=== PATIENT | female | born 1950 | race African-American/Black ===

== ENCOUNTER → 2016-12-16 | Day surgery (SDC) | payer OTHER ==
[~2016-12-16] MED LIST: ACID REDUCER75 M1 PO; ALLERGY RELIEF10 M6 PO; AMITRIPTYLINE H25 MG PO; CALCIUM + D 6001 TA1 PO; CELEXA20 MG PO; CITALOPRAM HBR40 MG PO; GABAPENTIN300 MG PO; HARD NAILS2500 MCG; KEFLEX500 MG; LEVOXYL0.137 MG PO; LUMIGAN2.5 ML OU; MSM1500 MG PO; MULTI VITAMIN1 EACH PO; NEURONTIN300 MG PO; PRILOSEC PO; PRILOSEC20 MG DOB; PROMETHAZINE HC25 MG PO; PROZAC PO; PYRIDIUM100 MG; SEROQUEL PO; SEROQUEL300 M1 PO; SEROQUEL300 MG PO; SYNTHROID125 PO; TEMAZEPAM30 MG PO; VICODIN 5/1 TAB 5/50; ZYRTEC10 M2 PO
--- NOTE | ~2016-12-16 | EKG ---
PATIENT: YEIMI ZAMORANO UNIT #: [id number] Ventricular Rate: 74 BPM Atrial Rate: 74 BPM P-R Interval: 156 ms QRS Duration: 80 ms Q-T Interval: 392 ms QTC Calculation(Bezet): 435 ms P [place]: 63 degrees Calculated R [place]: 35 degrees Calculated T [place]: 21 degrees Diagnosis Line: Normal sinus rhythm Diagnosis Line: Normal ECG Diagnosis Line: When compared with ECG of 15-DEC-2015 12:49, Diagnosis Line: No significant change was found Diagnosis Line: Confirmed by BERNADETTE ARELLANO MD ([id number]) on 12/19/2016 Diagnosis Line: 7:19:47 AM INTERPRETING MD: EILEEN HAYS
--- NOTE | ~2016-12-16 | OR ---
Unit #: [id number] #: [id number] Patient: YEIMI ZAMORANO [id number] [address] [address] [id number] O MR#: [id number] NAME: YEIMI ZAMROANO ROOM: Date of Procedure: 12/16/2016 Admission Date: 12/16/2016 Surgeon: Otto Khan M.D. : 1950 Attending Physician: Otto Khan M.D. Primary Care Physician: Primary Care Physician No OPERATIVE REPORT PREOPERATIVE DIAGNOSIS Interstitial cystitis. POSTOPERATIVE DIAGNOSIS Interstitial cystitis. PROCEDURE PERFORMED Cystoscopy, urethral dilation, and hydrodistention. ANESTHESIA General. DESCRIPTION OF PROCEDURE After informed consent, she was taken to the operating room, placed under general anesthetic and positioned in lithotomy. Her vagina and perineum were prepped and draped in usual sterile fashion. Cystoscopy was performed revealing a normal urethra and bladder. The entire bladder was inspected. She had normal-appearing left and right ureteral orifices. Her urethra was dilated using the male urethral sounds. This was done without difficulty. She was dilated up to 28-Yi. Her bladder was distended on three occasions. The volumes obtained were 900 mL respectively. She did have some glomerulations, but no ulcerations. An catheter placed to drainage temporarily and 1 L of Clorpactin was instilled into the bladder without difficulty. The bladder was emptied. Prior to completing the filling with Clorpactin, at least one time, repeat cystoscopy showed no injury to the bladder after Clorpactin instillation. The bladder was drained. Lidocaine jelly was placed inside the urethra for local anesthetic. She was taken to recovery. She will be discharged home. Return to see me as an outpatient. Dictated by... Mirlande Art/altagracial TD: 12/17/2016 02:21 JOB #: [id number] Unit #: [id number] #: [id number] Patient: YEIMI ZAMORANO OPERATIVE REPORT X Otto Khan MD X PROCEDURE OPERATIVE NOTE
[2016-12-16 07:40] LABS: BLOOD UREA NITROGEN 13 mg/dL (9-23); BUN/CREATININE RATIO 16.25; CALCIUM SERUM 9.1 mg/dL (8.4-10.2); CARBON DIOXIDE 27 mmol/L (22-31); CHLORIDE 104 mmol/L (100-111); CREATININE SERUM 0.8 mg/dL (0.6-1.4); GLOM FILT RATE Estimated ABOVE60 mL/min (>60); GLUCOSE FASTING 92 mg/dL (70-110); POTASSIUM 4.1 mmol/L (3.5-5.1); SODIUM 137 mmol/L (135-145)
== END | disposition home or self-care (01) ==
LOC: CSUR 06:10
PROVIDERS: Urology
DX: N30.10 Interstitial cystitis (chronic) without hematuria (principal); E89.0 Postprocedural hypothyroidism; F17.210 Nicotine dependence, cigarettes, uncomplicated; Z90.49 Acquired absence of other specified parts of digestive tract; Z87.19 Personal history of other diseases of the digestive system; Z90.721 Acquired absence of ovaries, unilateral; Z98.890 Other specified postprocedural states; Z88.0 Allergy status to penicillin; Z88.6 Allergy status to analgesic agent; Z79.899 Other long term (current) drug therapy
CPT/HCPCS: 80048; 93005; J0131; J0690; J1170; J1885; J2250; J3010

== ENCOUNTER → 2017-04-19 | Day surgery (SDC) | payer OTHER ==
--- NOTE | ~2017-04-19 | OR ---
Unit #: [id number] #: [id number] Patient: YEIMI ZAMORANO [id number] [address] [address] [id number] O MR#: [id number] NAME: YEIMI ZAMORANO ROOM: Date of Procedure: 04/19/2017 Admission Date: 04/19/2017 Surgeon: Otto Khan M.D. : 1950 Attending Physician: Otto Khan M.D. Primary Care Physician: Primary Care Physician No OPERATIVE REPORT PREOPERATIVE DIAGNOSIS Interstitial cystitis. POSTOPERATIVE DIAGNOSIS Interstitial cystitis. PROCEDURES PERFORMED Cystoscopy, hydrodistention, Clorpactin instillation. ANESTHESIA General. DESCRIPTION OF PROCEDURE After informed consent, she was taken to the operating room, placed under general anesthetic, positioned in lithotomy. Her vagina and perineum were prepped and draped in usual sterile fashion. Cystoscopy was performed showing a normal urethra and bladder. The entire bladder was inspected and there were no tumors, no stones, no diverticula. She had normal left and right ureteral orifices with efflux of clear urine. Her bladder was distended on 3 occasions. Each time, I was able to obtain 1 L of dilation. She had terminal hematuria. She had some ulceration. Repeat inspection showed no injury or perforation to the bladder. A catheter was placed inside the bladder and 1 L of Clorpactin instilled into the catheter and the bladder was emptied periodically while I was instilling the Clorpactin. After instilling the Clorpactin, repeat inspection shows a normal-appearing bladder except for some glomerulations. There was no injury to the bladder. Her bladder was drained and lidocaine jelly was placed inside the urethra and bladder for local anesthetic. She will be discharged home. Return to see me as an outpatient. Dictated by... Mirlande Art/madyson TD: 04/19/2017 18:03 JOB #: [id number] Unit #: [id number] #: [id number] Patient: YEIMI ZAMORANO OPERATIVE REPORT Page 1 of 1 X Otto Khan MD PROCEDURE OPERATIVE NOTE
[2017-04-19 10:45] LABS: CALCIUM SERUM 8.6 mg/dL (8.4-10.2); POTASSIUM 3.5 mmol/L (3.5-5.1)
== END | disposition home or self-care (01) ==
LOC: CSUR 09:55
PROVIDERS: Urology
DX: N30.11 Interstitial cystitis (chronic) with hematuria (principal); E89.0 Postprocedural hypothyroidism; K21.9 Gastro-esophageal reflux disease without esophagitis; F17.210 Nicotine dependence, cigarettes, uncomplicated; Z88.0 Allergy status to penicillin; Z88.6 Allergy status to analgesic agent; Z90.49 Acquired absence of other specified parts of digestive tract; Z90.721 Acquired absence of ovaries, unilateral; Z98.890 Other specified postprocedural states
CPT/HCPCS: 80048; J0690; J2250; J2405

== ENCOUNTER → 2017-04-28 | Day surgery (SDC) | payer OTHER ==
--- NOTE | ~2017-04-28 | OR ---
Unit #: [id number] #: [id number] Patient: YEIMI ZAMORANO [id number] [address] [address] [id number] O MR#: [id number] NAME: YEIMI ZAMORANO ROOM: Date of Procedure: 04/28/2017 Admission Date: 04/28/2017 Surgeon: Beto Belcher M.D. : 1950 Attending Physician: Beto Belcher M.D. Primary Care Physician: Primary Care Physician No OPERATIVE REPORT PREOPERATIVE DIAGNOSIS History of colonic polyps. POSTOPERATIVE DIAGNOSIS History of colonic polyps. PROCEDURES PERFORMED 1. Colonoscopy to cecum. 2. Polypectomy with electrocautery snare at 65 cm. ANESTHESIA Monitored anesthesia care. FINDINGS The patient was found to have a normal colon other than a 5 mm polyp that was excised at 65 cm. SPECIMENS Sent to pathology. COMPLICATIONS None apparent. CONDITION The patient tolerated the procedure well. INDICATIONS FOR PROCEDURE The patient is a 67-year-old black female, who presents at this time with a history of multiple colonic polyps removed several years ago. She presents at this time for surveillance colonoscopy. DESCRIPTION OF PROCEDURE After obtaining informed consent, the patient was brought to the endoscopy suite. After adequate monitored anesthesia care, had the colonoscope placed through the anus and slowly advanced to the level of the cecum without difficulty with the lumen always in view. The cecum was normal as was the ileocecal valve. The ascending colon was normal as was the hepatic flexure, transverse colon, and splenic flexure. In the proximal descending colon at 65 cm, there was a small 5 mm polyp. It was excised completely with electrocautery snare, retrieved with a mucus trap, and sent to pathology. The remaining portion of the descending colon, sigmoid colon, and rectum were normal. On retroflexion of the rectum to the Unit #: [id number] #: [id number] Patient: YEIMI ZAMORANO anorectal junction, the patient was found to have no significant abnormality. The scope was removed without difficulty. The patient tolerated the procedure well and went from the endoscopy suite to recovery area in stable condition. RECOMMENDATIONS High-fiber diet, lots of liquids, tucks or wipes p.r.n. Call Monday for pathology. Dictated by... Mirlande Mcdowell/madyson TD: 04/28/2017 09:22 JOB #: [id number] CC: [facility] Department [facility] OPERATIVE REPORT Page 1 of 1 X Beto Belcher MD X PROCEDURE OPERATIVE NOTE
== END | disposition home or self-care (01) ==
LOC: COPS 04-24 07:00
DX: Z12.11 Encounter for screening for malignant neoplasm of colon (principal); D12.4 Benign neoplasm of descending colon; E89.0 Postprocedural hypothyroidism; K21.9 Gastro-esophageal reflux disease without esophagitis; F17.210 Nicotine dependence, cigarettes, uncomplicated; F32.9 Major depressive disorder, single episode, unspecified; Z86.010 Personal history of colon polyps; Z80.0 Family history of malignant neoplasm of digestive organs; Z88.0 Allergy status to penicillin; Z88.6 Allergy status to analgesic agent; Z90.49 Acquired absence of other specified parts of digestive tract; Z79.899 Other long term (current) drug therapy; Z90.710 Acquired absence of both cervix and uterus; Z98.890 Other specified postprocedural states; Z90.721 Acquired absence of ovaries, unilateral
CPT/HCPCS: 88305; J2250